=== PATIENT | male | born 1955 | race Hispanic/Latino ===

== ENCOUNTER 2022-01-11 05:54 | Emergency (ER) | payer MEDICARE ==
[~2022-01-11] VITALS: Ht 162.6 cm; Wt 97.5 kg
[2022-01-11 07:12] LABS: BACTERIA,URINE FEW /HPF; CLARITY,URINE CLEAR (CLEAR); COLOR,URINE YELLOW (YELLOW); EPITHELIAL CELLS,URINE FEW /LPF; KETONES,URINE NEGATIVE (NEGATIVE); LEUKOCYTE ESTERASE ,URINE NEGATIVE (NEGATIVE); NITRITE,URINE NEGATIVE (NEGATIVE); PROTEIN,URINE DIPSTICK NEGATIVE (NEGATIVE); URINE UROBILINOGEN 0.2 mg/dL (0.2 - 1); WBC,URINE (MAN) 0-5 /HPF (0-5)
[2022-01-11] MEDS ORDERED: LIDOCAINE JELLY 2% 10ML URO-JET ONE (07:28)
[2022-01-11 08:53] LABS: BASOPHILS # (AUTO) 0.1 (0.0-0.1); EOSINOPHILS # (AUTO) 0.1 (0.0-0.4); HEMATOCRIT 34.6 % (38.2-49.6); LYMPHOCYTES # (AUTO) 1.6 (1.0-3.2); LYMPHOCYTES % 27.2 % (18.0-39.1); MEAN CORPUSCULAR HEMOGLOBIN 32.3 pg (28-32); MEAN CORPUSCULAR HGB CONC 34.7 g/dL (31-35); MONOCYTES # (AUTO) 0.7 (0.2-0.8); MONOCYTES % 11.6 % (4.4-11.3); NEUTROPHILS # (AUTO) 3.5 (2.1-6.9); NEUTROPHILS % 59.2 % (38.7-80.0); PLATELET COUNT 305 x10e3/uL (140-360); RED BLOOD COUNT 3.72 x10e6/uL (4.3-5.7); RED CELL DISTRIBUTION WIDTH 11.5 % (11.7-14.4)
[2022-01-11] MEDS ORDERED: SODIUM CHLORIDE 0.9% 1000ML 1,000 ML ONE (09:00)
[2022-01-11] MEDS ORDERED: ONDANSETRON HCL INJ 2MG/ML 2ML 2 MG/ML VIAL ONE (09:05)
[2022-01-11] MEDS ORDERED: HYDROMORPHONE 1MG/1ML INJ ONE (09:06)
[2022-01-11 09:37] LABS: ANION GAP 15.2 mmol/L (8-16); CALCIUM 9.2 mg/dL (8.4-10.2); CREATININE, SERUM 0.83 mg/dL (0.72-1.25); POTASSIUM 4.2 mmol/L (3.5-5.1)
[2022-01-11 10:28] VITALS: BP 123/56
== END 2022-01-11 10:14 | disposition home or self-care (01) ==
LOC: ER 06:02
DX: R31.9 Hematuria, unspecified (principal); R33.9 Retention of urine, unspecified; N35.919 Unspecified urethral stricture, male, unspecified site; E11.65 Type 2 diabetes mellitus with hyperglycemia; I10 Essential (primary) hypertension; E03.9 Hypothyroidism, unspecified
CPT/HCPCS: 36415; 51702; 80048; 81001; 85025; 87086; 99284; J7030; J1170; J2405

== ENCOUNTER 2022-01-17 12:14 | Inpatient (IN) | payer MEDICARE ==
[~2022-01-17] VITALS: Ht 162.6 cm; Wt 97.5 kg
[2022-01-17 13:51] LABS: BASOPHILS # (AUTO) 0.1 (0.0-0.1); BASOPHILS % 0.4 % (0.0-1.0); EOSINOPHILS % 0.1 % (0.0-6.0); HEMATOCRIT 31.3 % (38.2-49.6); HEMOGLOBIN 10.8 g/dL (14.0-18.0); LYMPHOCYTES # (AUTO) 0.9 (1.0-3.2); LYMPHOCYTES % 5.8 % (18.0-39.1); MEAN CORPUSCULAR HGB CONC 34.5 g/dL (31-35); MEAN CORPUSCULAR VOLUME 92.9 fL (81-99); MONOCYTES # (AUTO) 1.7 (0.2-0.8); MONOCYTES % 10.4 % (4.4-11.3); NEUTROPHILS # (AUTO) 13.3 (2.1-6.9); NEUTROPHILS % 82.9 % (38.7-80.0); PLATELET COUNT 286 x10e3/uL (140-360); RED BLOOD COUNT 3.37 x10e6/uL (4.3-5.7); RED CELL DISTRIBUTION WIDTH 11.7 % (11.7-14.4)
[2022-01-17 14:10] LABS: ALBUMIN 3.2 g/dL (3.5-5.0); ANION GAP 16.1 mmol/L (8-16); CALCIUM 8.2 mg/dL (8.4-10.2); CREATININE, SERUM 0.97 mg/dL (0.72-1.25); POTASSIUM 4.1 mmol/L (3.5-5.1)
[2022-01-17 14:32] LABS: CLARITY,URINE SL CLOUDY (CLEAR); COLOR,URINE AMBER (YELLOW); KETONES,URINE NEGATIVE (NEGATIVE); LEUKOCYTE ESTERASE ,URINE SMALL (NEGATIVE); NITRITE,URINE POSITIVE (NEGATIVE); PROTEIN,URINE DIPSTICK TRACE (NEGATIVE); URINE UROBILINOGEN 0.2 mg/dL (0.2 - 1)
[2022-01-17 14:46] LABS: BACTERIA,URINE MODERATE /HPF; RBC,URINE 0-5 /HPF (0-5)
[2022-01-17] MEDS ORDERED: SODIUM CHLORIDE 0.9% 1000ML 1,000 ML IV ONE (15:15)
[2022-01-17] MEDS ORDERED: ONDANSETRON HCL INJ 2MG/ML 2ML 2 MG/ML VIAL IV PRN (15:30)
[2022-01-17] MEDS ORDERED: Morphine 4mg INJECTION 4 MG/ML INJ IV PRN (15:30)
[2022-01-17] MEDS ORDERED: SODIUM CHLORIDE FLUSH 10 ML SYR INJ PRN (15:30)
[2022-01-17 19:54] VITALS: BP 125/67
[2022-01-17 22:10] VITALS: BP 138/114
[2022-01-17] MEDS: SODIUM CHLORIDE 0.9% 1000ML 1,000 ML IV SCH (22:51)
[2022-01-17 23:30] VITALS: BP 138/114
[2022-01-18] VITALS (7 sets, daily range): BP systolic 118–142; BP diastolic 64–81
[2022-01-18] MEDS ORDERED: IRBESARTAN300 MG PO (03:16)
[2022-01-18] MEDS ORDERED: MONTELUKAST SOD10 MG PO (03:16)
[2022-01-18] MEDS ORDERED: METFORMIN HCL500 MG PO (03:16)
[2022-01-18] MEDS ORDERED: ASPIRIN EC81 MG PO (03:16)
[2022-01-18] MEDS ORDERED: AMLODIPINE BESY10 MG PO (03:16)
[2022-01-18] MEDS ORDERED: LOVASTATIN20 MG PO (03:16)
[2022-01-18 05:35] LABS: BASOPHILS # (AUTO) 0.1 (0.0-0.1); BASOPHILS % 0.3 % (0.0-1.0); EOSINOPHILS % 0.1 % (0.0-6.0); HEMATOCRIT 31.6 % (38.2-49.6); LYMPHOCYTES # (AUTO) 0.7 (1.0-3.2); LYMPHOCYTES % 3.6 % (18.0-39.1); MEAN CORPUSCULAR HEMOGLOBIN 32.3 pg (28-32); MEAN CORPUSCULAR HGB CONC 34.8 g/dL (31-35); MEAN CORPUSCULAR VOLUME 92.7 fL (81-99); MONOCYTES # (AUTO) 2.2 (0.2-0.8); MONOCYTES % 11.9 % (4.4-11.3); NEUTROPHILS # (AUTO) 15.6 (2.1-6.9); NEUTROPHILS % 83.4 % (38.7-80.0); PLATELET COUNT 279 x10e3/uL (140-360); RED BLOOD COUNT 3.41 x10e6/uL (4.3-5.7); RED CELL DISTRIBUTION WIDTH 11.8 % (11.7-14.4)
[2022-01-18 06:08] LABS: ANION GAP 11.2 mmol/L (8-16); CALCIUM 8.5 mg/dL (8.4-10.2); CREATININE, SERUM 0.82 mg/dL (0.72-1.25); POTASSIUM 4.2 mmol/L (3.5-5.1)
[2022-01-18] MEDS: SODIUM CHLORIDE 0.9% 1000ML 1,000 ML IV SCH ×2 (08:30→19:31)
[2022-01-18] MEDS ORDERED: DEXTROSE 50% SYRINGE 50 ML IV PRN (10:15)
[2022-01-18] MEDS ORDERED: NON-FORMULARY MEDICATION (Lovastatin 20 MG) PO SCH (10:15)
[2022-01-18] MEDS ORDERED: NON-FORMULARY MEDICATION (Irbesartan 300 MG) PO SCH (10:15)
[2022-01-18] MEDS ORDERED: IRBESARTAN 150 MG TAB PO SCH (11:00)
[2022-01-18] MEDS ORDERED: IOPAMIDOL 370 MG/ML 100 ML INFUS..BTL INJ ONE (11:10)
[2022-01-18] MEDS: AMLODIPINE BESYLATE 10 MG TAB PO SCH (12:37)
[2022-01-18] MEDS: MONTELUKAST SODIUM 10 MG TAB PO SCH (12:37)
[2022-01-18] MEDS: ACETAMINOPHEN 325 MG TAB PO PRN (12:38)
[2022-01-18] MEDS: INSULIN LISPRO 100 UNIT/1 ML 3ML VIAL SQ SCH ×3 (12:43→21:00)
[2022-01-18] MEDS: SIMVASTATIN 20 MG TAB PO SCH (22:21)
[2022-01-19] VITALS (8 sets, daily range): BP systolic 126–157; BP diastolic 54–64
[2022-01-19] MEDS: SODIUM CHLORIDE 0.9% 1000ML 1,000 ML IV SCH ×2 (03:53→16:19)
[2022-01-19 06:20] LABS: BASOPHILS # (AUTO) 0.1 (0.0-0.1); BASOPHILS % 0.5 % (0.0-1.0); EOSINOPHILS # (AUTO) 0.1 (0.0-0.4); EOSINOPHILS % 0.5 % (0.0-6.0); HEMATOCRIT 31.9 % (38.2-49.6); LYMPHOCYTES # (AUTO) 0.9 (1.0-3.2); LYMPHOCYTES % 7.9 % (18.0-39.1); MEAN CORPUSCULAR HEMOGLOBIN 32.2 pg (28-32); MEAN CORPUSCULAR HGB CONC 34.5 g/dL (31-35); MEAN CORPUSCULAR VOLUME 93.3 fL (81-99); MONOCYTES # (AUTO) 1.5 (0.2-0.8); MONOCYTES % 13.9 % (4.4-11.3); NEUTROPHILS # (AUTO) 8.4 (2.1-6.9); NEUTROPHILS % 76.8 % (38.7-80.0); PLATELET COUNT 289 x10e3/uL (140-360); RED BLOOD COUNT 3.42 x10e6/uL (4.3-5.7); RED CELL DISTRIBUTION WIDTH 11.6 % (11.7-14.4)
[2022-01-19 07:06] LABS: ANION GAP 13.2 mmol/L (8-16); CALCIUM 8.5 mg/dL (8.4-10.2); CREATININE, SERUM 0.85 mg/dL (0.72-1.25); POTASSIUM 4.2 mmol/L (3.5-5.1)
[2022-01-19] MEDS: AMLODIPINE BESYLATE 10 MG TAB PO SCH (09:28)
[2022-01-19] MEDS: MONTELUKAST SODIUM 10 MG TAB PO SCH (09:29)
[2022-01-19] MEDS: INSULIN LISPRO 100 UNIT/1 ML 3ML VIAL SQ SCH ×4 (09:52→22:02)
[2022-01-19] MEDS: IRBESARTAN 150 MG TAB PO SCH (21:52)
[2022-01-19] MEDS: SIMVASTATIN 20 MG TAB PO SCH (21:52)
[2022-01-20 00:16] VITALS: BP 151/66
[2022-01-20 05:13] VITALS: BP 149/72
[2022-01-20] MEDS: SODIUM CHLORIDE 0.9% 1000ML 1,000 ML IV SCH ×3 (05:18→22:37)
[2022-01-20 08:07] VITALS: BP 138/58
[2022-01-20] MEDS: MONTELUKAST SODIUM 10 MG TAB PO SCH (08:09)
[2022-01-20] MEDS: AMLODIPINE BESYLATE 10 MG TAB PO SCH (08:09)
[2022-01-20 08:13] VITALS: BP 138/58
[2022-01-20] MEDS: INSULIN LISPRO 100 UNIT/1 ML 3ML VIAL SQ SCH ×4 (08:13→21:00)
[2022-01-20 15:29] VITALS: BP 150/66
[2022-01-20] MEDS ORDERED: ONDANSETRON HCL 4 MG ORAL DISINTEGRATING TAB SL PRN (16:00)
[2022-01-20 20:00] VITALS: BP 162/83
[2022-01-20] MEDS: SIMVASTATIN 20 MG TAB PO SCH (22:37)
[2022-01-20] MEDS: IRBESARTAN 150 MG TAB PO SCH (22:39)
[2022-01-21] VITALS (8 sets, daily range): BP systolic 129–158; BP diastolic 49–72
[2022-01-21] MEDS: SODIUM CHLORIDE 0.9% 1000ML 1,000 ML IV SCH ×2 (05:06→21:36)
[2022-01-21] MEDS: INSULIN LISPRO 100 UNIT/1 ML 3ML VIAL SQ SCH ×4 (07:30→21:00)
[2022-01-21] MEDS: ACETAMINOPHEN 325 MG TAB PO PRN ×2 (08:32→17:10)
[2022-01-21] MEDS: AMLODIPINE BESYLATE 10 MG TAB PO SCH (08:32)
[2022-01-21] MEDS: MONTELUKAST SODIUM 10 MG TAB PO SCH (08:32)
[2022-01-21 08:46] LABS: BASOPHILS # (AUTO) 0.1 (0.0-0.1); BASOPHILS % 0.8 % (0.0-1.0); EOSINOPHILS % 0.5 % (0.0-6.0); HEMATOCRIT 31.6 % (38.2-49.6); HEMOGLOBIN 10.9 g/dL (14.0-18.0); LYMPHOCYTES # (AUTO) 0.7 (1.0-3.2); LYMPHOCYTES % 11.6 % (18.0-39.1); MEAN CORPUSCULAR HEMOGLOBIN 32.1 pg (28-32); MEAN CORPUSCULAR HGB CONC 34.5 g/dL (31-35); MEAN CORPUSCULAR VOLUME 92.9 fL (81-99); MONOCYTES # (AUTO) 1.3 (0.2-0.8); MONOCYTES % 21.2 % (4.4-11.3); NEUTROPHILS # (AUTO) 4.1 (2.1-6.9); NEUTROPHILS % 65.6 % (38.7-80.0); PLATELET COUNT 311 x10e3/uL (140-360); RED CELL DISTRIBUTION WIDTH 11.4 % (11.7-14.4)
[2022-01-21 09:05] LABS: ANION GAP 13.4 mmol/L (8-16); CALCIUM 8.4 mg/dL (8.4-10.2); CREATININE, SERUM 0.79 mg/dL (0.72-1.25); POTASSIUM 4.4 mmol/L (3.5-5.1)
[2022-01-21] MEDS ORDERED: SODIUM CHLORIDE 0.9% 250ML 250 ML IV NR (10:45)
[2022-01-21 11:25] LABS: BAND NEUTROPHILS % (MANUAL) 2 %; LYMPHOCYTES % (MANUAL) 16 % (19-48); METAMYELOCYTES % (MANUAL) 1 % (0-0); MONOCYTES % (MANUAL) 13 % (3.4-9.0); MYELOCYTES % (MANUAL) 1 % (0-0); NEUTROPHILS % (MANUAL) 66 % (40-74)
[2022-01-21 11:26] LABS: PLATELET ESTIMATE ADEQUATE; PLATELET MORPHOLOGY COMMENT NORMAL; RBC MORPHOLOGY COMMENT NORMAL
[2022-01-21] MEDS: SIMVASTATIN 20 MG TAB PO SCH (21:36)
[2022-01-21] MEDS: IRBESARTAN 150 MG TAB PO SCH (21:37)
[2022-01-22] VITALS (7 sets, daily range): BP systolic 130–167; BP diastolic 59–73
[2022-01-22] MEDS: SODIUM CHLORIDE 0.9% 1000ML 1,000 ML IV SCH ×3 (04:59→20:45)
[2022-01-22 06:04] LABS: BASOPHILS # (AUTO) 0.1 (0.0-0.1); BASOPHILS % 0.8 % (0.0-1.0); EOSINOPHILS # (AUTO) 0.1 (0.0-0.4); EOSINOPHILS % 1.4 % (0.0-6.0); HEMATOCRIT 31.1 % (38.2-49.6); HEMOGLOBIN 10.8 g/dL (14.0-18.0); LYMPHOCYTES # (AUTO) 0.7 (1.0-3.2); LYMPHOCYTES % 11.8 % (18.0-39.1); MEAN CORPUSCULAR HEMOGLOBIN 31.6 pg (28-32); MEAN CORPUSCULAR HGB CONC 34.7 g/dL (31-35); MEAN CORPUSCULAR VOLUME 90.9 fL (81-99); MONOCYTES # (AUTO) 1.5 (0.2-0.8); MONOCYTES % 23.7 % (4.4-11.3); NEUTROPHILS # (AUTO) 3.9 (2.1-6.9); PLATELET COUNT 289 x10e3/uL (140-360); RED BLOOD COUNT 3.42 x10e6/uL (4.3-5.7); RED CELL DISTRIBUTION WIDTH 11.4 % (11.7-14.4)
[2022-01-22 06:36] LABS: ALBUMIN 2.8 g/dL (3.5-5.0); ALBUMIN/GLOBULIN RATIO 0.8 (0.8-2.0); ANION GAP 11.2 mmol/L (8-16); CALCIUM 8.3 mg/dL (8.4-10.2); CREATININE, SERUM 0.77 mg/dL (0.72-1.25); POTASSIUM 4.2 mmol/L (3.5-5.1)
[2022-01-22] MEDS: INSULIN LISPRO 100 UNIT/1 ML 3ML VIAL SQ SCH ×3 (07:30→21:00)
[2022-01-22 08:10] LABS: EOSINOPHILS % (MANUAL) 2 % (0-7); LYMPHOCYTES % (MANUAL) 13 % (19-48); MONOCYTES % (MANUAL) 19 % (3.4-9.0); NEUTROPHILS % (MANUAL) 65 % (40-74); PLATELET ESTIMATE ADEQUATE; PLATELET MORPHOLOGY COMMENT NORMAL; RBC MORPHOLOGY COMMENT NORMAL
[2022-01-22] MEDS: MONTELUKAST SODIUM 10 MG TAB PO SCH (09:00)
[2022-01-22] MEDS: AMLODIPINE BESYLATE 10 MG TAB PO SCH (09:20)
[2022-01-22] MEDS: ACETAMINOPHEN 325 MG TAB PO PRN (09:20)
[2022-01-22] MEDS ORDERED: NEOSTIGMINE 1 MG/ML 10ML VIAL ONE (12:41)
[2022-01-22] MEDS ORDERED: ONDANSETRON HCL INJ 2MG/ML 2ML 2 MG/ML VIAL ONE (12:41)
[2022-01-22] MEDS ORDERED: SEVOFLURANE INHAL SOLN 250 ML PEN BTL ONE (12:41)
[2022-01-22] MEDS ORDERED: ATROPINE SULFATE 1 MG/ML VIAL ONE (12:41)
[2022-01-22] MEDS ORDERED: LIDOCAINE HCL 2% LOCAL INJ 5 ML SDV VIAL INJ ONE (12:41)
[2022-01-22] MEDS ORDERED: ROCURONIUM BROMIDE 10 MG/ML 5ML VIAL IV ONE (12:41)
[2022-01-22] MEDS ORDERED: POVIDONE IODINE 0.05% 0.05 % ML PO ONE (12:41)
[2022-01-22] MEDS ORDERED: DEXAMETHASONE SOD PHOS INJ 4 MG/ML SDV ONE (12:41)
[2022-01-22] MEDS ORDERED: PROPOFOL IV EMULSION 10 MG/ML 20 ML VIAL ONE (12:41)
[2022-01-22] MEDS ORDERED: FENTANYL CITRATE/PF 100MCG/2 ML INJ ONE ×2 (13:17→19:05)
[2022-01-22] MEDS ORDERED: MIDAZOLAM HCL 2 MG/2 ML VIAL ONE (13:17)
[2022-01-22] MEDS ORDERED: MANNITOL 25% 12.5GM/50ML 0 ML ONE (15:10)
[2022-01-22] MEDS ORDERED: ACETAMINOPHEN 1000 MG/100 ML IV PRN (19:00)
[2022-01-22] MEDS ORDERED: NALOXONE HCL INJ 0.4 MG/ML AMP IV PRN (19:00)
[2022-01-22] MEDS ORDERED: DIPHENHYDRAMINE HCL INJ 50 MG/ML VIAL IM PRN (19:00)
[2022-01-22] MEDS ORDERED: ONDANSETRON HCL INJ 2MG/ML 2ML 2 MG/ML VIAL IV PRN (19:00)
[2022-01-22] MEDS: MORPHINE SULFATE 1 MG/ML 30ML PCA IV PRN (19:05)
[2022-01-22 19:12] LABS: BASOPHILS # (AUTO) 0.1 (0.0-0.1); BASOPHILS % 0.4 % (0.0-1.0); HEMATOCRIT 30.8 % (38.2-49.6); HEMOGLOBIN 10.6 g/dL (14.0-18.0); LYMPHOCYTES # (AUTO) 0.5 (1.0-3.2); LYMPHOCYTES % 3.9 % (18.0-39.1); MEAN CORPUSCULAR HEMOGLOBIN 32.1 pg (28-32); MEAN CORPUSCULAR HGB CONC 34.4 g/dL (31-35); MEAN CORPUSCULAR VOLUME 93.3 fL (81-99); MONOCYTES # (AUTO) 0.3 (0.2-0.8); MONOCYTES % 2.7 % (4.4-11.3); NEUTROPHILS % 92.5 % (38.7-80.0); PLATELET COUNT 307 x10e3/uL (140-360); RED CELL DISTRIBUTION WIDTH 11.5 % (11.7-14.4)
[2022-01-22 19:30] LABS: ANION GAP 16.6 mmol/L (8-16); CALCIUM 7.9 mg/dL (8.4-10.2); CREATININE, SERUM 0.9 mg/dL (0.72-1.25); POTASSIUM 4.6 mmol/L (3.5-5.1)
[2022-01-22] MEDS: IRBESARTAN 150 MG TAB PO SCH (21:04)
[2022-01-22] MEDS: SIMVASTATIN 20 MG TAB PO SCH (21:04)
[2022-01-23] VITALS (8 sets, daily range): BP systolic 129–173; BP diastolic 51–72
[2022-01-23] MEDS: SODIUM CHLORIDE 0.9% 1000ML 1,000 ML IV SCH ×3 (05:04→20:30)
[2022-01-23 05:44] LABS: BASOPHILS % 0.3 % (0.0-1.0); HEMATOCRIT 27.8 % (38.2-49.6); HEMOGLOBIN 9.6 g/dL (14.0-18.0); LYMPHOCYTES # (AUTO) 0.5 (1.0-3.2); LYMPHOCYTES % 5.1 % (18.0-39.1); MEAN CORPUSCULAR HEMOGLOBIN 31.8 pg (28-32); MEAN CORPUSCULAR HGB CONC 34.5 g/dL (31-35); MEAN CORPUSCULAR VOLUME 92.1 fL (81-99); MONOCYTES # (AUTO) 1.2 (0.2-0.8); MONOCYTES % 11.4 % (4.4-11.3); NEUTROPHILS # (AUTO) 8.6 (2.1-6.9); NEUTROPHILS % 82.6 % (38.7-80.0); PLATELET COUNT 292 x10e3/uL (140-360); RED BLOOD COUNT 3.02 x10e6/uL (4.3-5.7); RED CELL DISTRIBUTION WIDTH 11.4 % (11.7-14.4)
[2022-01-23 06:06] LABS: ANION GAP 15.8 mmol/L (8-16); CALCIUM 7.9 mg/dL (8.4-10.2); CREATININE, SERUM 1.11 mg/dL (0.72-1.25); POTASSIUM 4.8 mmol/L (3.5-5.1)
[2022-01-23] MEDS: INSULIN LISPRO 100 UNIT/1 ML 3ML VIAL SQ SCH ×4 (07:30→20:34)
[2022-01-23] MEDS: MONTELUKAST SODIUM 10 MG TAB PO SCH (09:00)
[2022-01-23] MEDS: DOCUSATE SODIUM 100 MG CAP PO SCH ×2 (09:00→16:21)
[2022-01-23] MEDS: AMLODIPINE BESYLATE 10 MG TAB PO SCH (09:00)
[2022-01-23] MEDS: SIMVASTATIN 20 MG TAB PO SCH (20:31)
[2022-01-23] MEDS: IRBESARTAN 150 MG TAB PO SCH (20:31)
[2022-01-23] MEDS: MORPHINE SULFATE 1 MG/ML 30ML PCA IV PRN (22:26)
[2022-01-24] VITALS (8 sets, daily range): BP systolic 145–157; BP diastolic 57–70
[2022-01-24] MEDS: SODIUM CHLORIDE 0.9% 1000ML 1,000 ML IV SCH ×2 (03:00→11:14)
[2022-01-24 05:05] LABS: BASOPHILS # (AUTO) 0.1 (0.0-0.1); BASOPHILS % 0.6 % (0.0-1.0); EOSINOPHILS % 0.5 % (0.0-6.0); HEMATOCRIT 29.2 % (38.2-49.6); HEMOGLOBIN 9.8 g/dL (14.0-18.0); LYMPHOCYTES # (AUTO) 1.1 (1.0-3.2); LYMPHOCYTES % 12.4 % (18.0-39.1); MEAN CORPUSCULAR HEMOGLOBIN 31.1 pg (28-32); MEAN CORPUSCULAR HGB CONC 33.6 g/dL (31-35); MEAN CORPUSCULAR VOLUME 92.7 fL (81-99); MONOCYTES # (AUTO) 1.4 (0.2-0.8); MONOCYTES % 15.9 % (4.4-11.3); NEUTROPHILS # (AUTO) 6.1 (2.1-6.9); PLATELET COUNT 309 x10e3/uL (140-360); RED BLOOD COUNT 3.15 x10e6/uL (4.3-5.7); RED CELL DISTRIBUTION WIDTH 11.6 % (11.7-14.4)
[2022-01-24 05:26] LABS: ANION GAP 13.2 mmol/L (8-16); CALCIUM 7.9 mg/dL (8.4-10.2); CREATININE, SERUM 1.07 mg/dL (0.72-1.25); POTASSIUM 4.2 mmol/L (3.5-5.1)
[2022-01-24] MEDS: INSULIN LISPRO 100 UNIT/1 ML 3ML VIAL SQ SCH ×4 (07:30→21:00)
[2022-01-24] MEDS: AMLODIPINE BESYLATE 10 MG TAB PO SCH (09:23)
[2022-01-24] MEDS: DOCUSATE SODIUM 100 MG CAP PO SCH ×2 (09:23→16:40)
[2022-01-24] MEDS: MONTELUKAST SODIUM 10 MG TAB PO SCH (09:23)
[2022-01-24 11:54] LABS: LYMPHOCYTES % (MANUAL) 15 % (19-48); MONOCYTES % (MANUAL) 6 % (3.4-9.0); NEUTROPHILS % (MANUAL) 79 % (40-74); PLATELET ESTIMATE ADEQUATE; PLATELET MORPHOLOGY COMMENT NORMAL; RBC MORPHOLOGY COMMENT NORMAL
[2022-01-24] MEDS: SIMVASTATIN 20 MG TAB PO SCH (21:46)
[2022-01-24] MEDS: IRBESARTAN 150 MG TAB PO SCH (21:47)
[2022-01-25] VITALS (8 sets, daily range): BP systolic 123–165; BP diastolic 56–79
[2022-01-25 05:38] LABS: BASOPHILS # (AUTO) 0.1 (0.0-0.1); BASOPHILS % 0.8 % (0.0-1.0); EOSINOPHILS # (AUTO) 0.1 (0.0-0.4); EOSINOPHILS % 1.2 % (0.0-6.0); HEMATOCRIT 29.5 % (38.2-49.6); HEMOGLOBIN 10.3 g/dL (14.0-18.0); LYMPHOCYTES # (AUTO) 1.3 (1.0-3.2); LYMPHOCYTES % 13.9 % (18.0-39.1); MEAN CORPUSCULAR HEMOGLOBIN 31.2 pg (28-32); MEAN CORPUSCULAR HGB CONC 34.9 g/dL (31-35); MEAN CORPUSCULAR VOLUME 89.4 fL (81-99); MONOCYTES # (AUTO) 1.2 (0.2-0.8); MONOCYTES % 13.4 % (4.4-11.3); NEUTROPHILS # (AUTO) 6.4 (2.1-6.9); NEUTROPHILS % 70.1 % (38.7-80.0); PLATELET COUNT 300 x10e3/uL (140-360); RED CELL DISTRIBUTION WIDTH 11.4 % (11.7-14.4)
[2022-01-25 05:55] LABS: ANION GAP 15.8 mmol/L (8-16); CALCIUM 8.2 mg/dL (8.4-10.2); POTASSIUM 3.8 mmol/L (3.5-5.1)
[2022-01-25] MEDS ORDERED: SODIUM CHLORIDE 0.9% 1000ML 1,000 ML IV SCH (07:00)
[2022-01-25] MEDS: INSULIN LISPRO 100 UNIT/1 ML 3ML VIAL SQ SCH ×4 (07:30→21:55)
[2022-01-25] MEDS: DOCUSATE SODIUM 100 MG CAP PO SCH ×2 (08:50→16:42)
[2022-01-25] MEDS: MONTELUKAST SODIUM 10 MG TAB PO SCH (08:51)
[2022-01-25] MEDS: AMLODIPINE BESYLATE 10 MG TAB PO SCH (08:51)
[2022-01-25] MEDS: ACETAMINOPHEN/CODEINE 300MG - 30MG TAB PO PRN ×2 (10:26→21:59)
[2022-01-25] MEDS: SIMVASTATIN 20 MG TAB PO SCH (21:50)
[2022-01-25] MEDS: IRBESARTAN 150 MG TAB PO SCH (21:50)
[2022-01-26 00:22] VITALS: BP 167/69
[2022-01-26] MEDS: SODIUM CHLORIDE 0.9% 1000ML 1,000 ML IV SCH ×2 (00:35→12:48)
[2022-01-26 04:00] VITALS: BP 171/75
[2022-01-26 06:53] LABS: BASOPHILS % 0.4 % (0.0-1.0); EOSINOPHILS # (AUTO) 0.2 (0.0-0.4); EOSINOPHILS % 1.8 % (0.0-6.0); HEMATOCRIT 27.7 % (38.2-49.6); LYMPHOCYTES # (AUTO) 0.9 (1.0-3.2); LYMPHOCYTES % 9.9 % (18.0-39.1); MEAN CORPUSCULAR HEMOGLOBIN 31.7 pg (28-32); MEAN CORPUSCULAR HGB CONC 36.1 g/dL (31-35); MEAN CORPUSCULAR VOLUME 87.9 fL (81-99); MONOCYTES % 11.1 % (4.4-11.3); NEUTROPHILS # (AUTO) 6.8 (2.1-6.9); NEUTROPHILS % 75.9 % (38.7-80.0); PLATELET COUNT 378 x10e3/uL (140-360); RED BLOOD COUNT 3.15 x10e6/uL (4.3-5.7); RED CELL DISTRIBUTION WIDTH 11.5 % (11.7-14.4)
[2022-01-26 07:10] LABS: ANION GAP 13.8 mmol/L (8-16); CALCIUM 8.6 mg/dL (8.4-10.2); CREATININE, SERUM 1.06 mg/dL (0.72-1.25); POTASSIUM 3.8 mmol/L (3.5-5.1)
[2022-01-26 08:19] VITALS: BP 157/71
[2022-01-26] MEDS: DOCUSATE SODIUM 100 MG CAP PO SCH ×2 (08:34→16:41)
[2022-01-26] MEDS: AMLODIPINE BESYLATE 10 MG TAB PO SCH (08:34)
[2022-01-26] MEDS: MONTELUKAST SODIUM 10 MG TAB PO SCH (08:34)
[2022-01-26] MEDS: ACETAMINOPHEN/CODEINE 300MG - 30MG TAB PO PRN ×2 (08:35→16:44)
[2022-01-26] MEDS: INSULIN LISPRO 100 UNIT/1 ML 3ML VIAL SQ SCH ×3 (08:39→16:30)
[2022-01-26 08:43] VITALS: BP 157/71
[2022-01-26] MEDS ORDERED: DIPHENHYDRAMINE HCL 25 MG CAP PO PRN (09:30)
[2022-01-26] MEDS: LACTULOSE SYRUP 20 GM/30 ML UDC PO PRN ×2 (10:03→16:40)
[2022-01-26] MEDS ORDERED: ONDANSETRON HCL 4 MG ORAL DISINTEGRATING TAB PO PRN (10:45)
[2022-01-26 12:32] VITALS: BP 144/63
[2022-01-26 16:12] VITALS: BP 153/75
[2022-01-26] MEDS ORDERED: CIPRO500 MG PO (17:43)
[2022-01-26] MEDS ORDERED: Docusate Sodium PO (17:46)
[2022-01-26] MEDS ORDERED: tylenol #3 PO (18:06)
== END 2022-01-26 18:33 | disposition home or self-care (01) | DRG 656 ==
LOC: ER 12:23 → ERHOLD 15:28 → MED/SURG3 22:25 → MED/SURG 01-22 19:30
PROVIDERS: ADMIT Internal Medicine; ATTEND Internal Medicine
PROC: 0TT10ZZ Resection of Left Kidney, Open Approach (ICD-10-PCS; principal; 2022-01-22 16:30)
DX: C64.2 Malignant neoplasm of left kidney, except renal pelvis (principal); A41.9 Sepsis, unspecified organism; E87.1 Hypo-osmolality and hyponatremia; N39.0 Urinary tract infection, site not specified; N35.919 Unspecified urethral stricture, male, unspecified site; Z93.6 Other artificial openings of urinary tract status; Z96.0 Presence of urogenital implants; E11.9 Type 2 diabetes mellitus without complications; I10 Essential (primary) hypertension; E03.9 Hypothyroidism, unspecified; B96.89 Other specified bacterial agents as the cause of diseases classified elsewhere; Z20.822 Contact with and (suspected) exposure to COVID-19; N28.89 Other specified disorders of kidney and ureter; D64.9 Anemia, unspecified; D35.02 Benign neoplasm of left adrenal gland; R31.0 Gross hematuria; E66.9 Obesity, unspecified; Z68.36 Body mass index [BMI] 36.0-36.9, adult; N43.3 Hydrocele, unspecified
CPT/HCPCS: 0223U; 36415; 71045; 74176; 74178; 80048; 80053; 81001; 82948; 83605; 83735; 85025; 86850; 86900; 86920; 87040; 87086; 87186; 88304; 88307; 88311; 88342; 93005; 94799; 96361; 99284; J0461; J0692; J1100; J1200; J2001; J2150; J2250; J2270; J2405; J2710; J3010; J7030; Q9967